=== PATIENT | male | born 1985 | race Two or more races ===

== ENCOUNTER 2024-09-15 18:39 | Inpatient (IN) | payer OTHER ==
[~2024-09-15] VITALS: Ht 180.3 cm; Wt 81.8 kg
[2024-09-15 21:42] LABS: BASOPHILS % (AUTO) 0.2 % (0.0-2.0); EOSINOPHILS % (AUTO) 0.3 % (1.0-6.0); HEMATOCRIT 46.8 % (41-53); HEMOGLOBIN 15.5 g/dL (13.5-17.5); LYMPHOCYTES # (AUTO) 3.1 K/uL (1.0-4.8); LYMPHOCYTES % (AUTO) 24.1 % (22.0-44.0); MEAN CORPUSCULAR HGB CONC 33.1 G/dL (31.0-37.0); MEAN CORPUSCULAR VOLUME 91 fL (80-100); MONOCYTES # (AUTO) 0.8 K/uL (0.1-1.0); MONOCYTES % (AUTO) 6.3 % (2.0-9.0); NEUTROPHILS # (AUTO) 8.8 K/uL (1.8-7.7); NEUTROPHILS % (AUTO) 69.1 % (40.0-70.0); PLATELET COUNT (AUTO) 166 K/uL (150-450); RED BLOOD CELL COUNT(AUTO) 5.17 MIL/uL (4.50-5.90); RED CELL DISTRIBUTION WIDTH 14.1 % (11.5-14.5); WHITE BLOOD COUNT (AUTO) 12.8 K/uL (4.5-11.0)
[2024-09-15 21:47] LABS: ANION GAP 10 mmol/L (8-16); CALCIUM, TOTAL 9.1 mg/dL (8.8-10.5); CARBON DIOXIDE 28 mmol/L (22-29); CHLORIDE 102 mmol/L (98-107); CREATININE 0.84 mg/dL (0.60-1.30); GLOMERULAR FILTR. RATE CALC > 60 mL/min (>60); GLUCOSE,RANDOM 99 mg/dL (70-110); POTASSIUM 3.7 mmol/L (3.5-5.1); SODIUM SERUM 140 mmol/L (136-145); UREA NITROGEN, BLOOD 8 mg/dL (7-18)
[2024-09-15 21:52] LABS: COVID AG,FIA SOURCE NPH
[2024-09-15 21:55] LABS: ALCOHOL, BLOOD (SERUM) < 3 mg/dL (0-10)
[2024-09-15 22:18] LABS: SARS-COV2 (COVID) ANTIGEN,FIA Negative (Negative)
[2024-09-16 10:19] VITALS: BP 104/63; PULSE 64; RESP 18; TEMP 98; O2SAT 97
[2024-09-16] MEDS: ESCITALOPRAM OXALATE 10 MG TABLET PO SCH (15:47)
[2024-09-16 20:15] VITALS: BP 126/72; PULSE 73; RESP 18; TEMP 97.8; O2SAT 98
[2024-09-16 20:19] VITALS: BP 123/54; PULSE 80; RESP 18; TEMP 99.5; O2SAT 96
[2024-09-16] MEDS: DiphenhydrAMINE HCL 25 MG CAPSULE PO PRN (20:47)
[2024-09-17 07:48] VITALS: BP 129/67; PULSE 79; RESP 18; TEMP 98.1; O2SAT 97
[2024-09-17] MEDS ORDERED: ESCI-8 PO (11:15)
[2024-09-17 15:40] VITALS: BP 133/78; PULSE 67; RESP 18; TEMP 98.7; O2SAT 99
== END 2024-09-17 15:00 | disposition home or self-care (01) | DRG 885 ==
LOC: EMS 18:39 → EDH 09-16 07:08 → UNDOADMIN 09-16 08:02 → EDH 09-16 08:02 → 6S 09-16 09:30 → EDH 09-16 09:30
PROVIDERS: ADMIT Hospitalist; ATTEND Hospitalist
PROC: GZ56ZZZ Individual Psychotherapy, Supportive (ICD-10-PCS; principal; 2024-09-16)
DX: F33.2 Major depressive disorder, recurrent severe without psychotic features (principal); R45.851 Suicidal ideations; F41.9 Anxiety disorder, unspecified; Z20.822 Contact with and (suspected) exposure to COVID-19; G47.00 Insomnia, unspecified; I10 Essential (primary) hypertension; F43.10 Post-traumatic stress disorder, unspecified
CPT/HCPCS: 72040; 80048; 85025; 99285; G0480